=== PATIENT | male | born 1950 | race Caucasian/White ===

== ENCOUNTER 2017-10-19 13:39 | Day surgery (SDC) | payer OTHER, MEDICARE, SELFPAY ==
[2017-10-18 11:59] VITALS: BMI 33.5
[2017-10-19] VITALS (7 sets, daily range): BP systolic 142–166; BP diastolic 77–91; PULSE 60–80; RESP 14–17; TEMP 36.3–36.4; O2SAT 94–99; BMI 33.5
--- NOTE | 2017-10-19 14:42 | PM.PREOP ---
Pre-operative Note Interval Note Pre-op Check: History & Physical Reviewed by Physician, Exam Performed and History & Physical exam performed today
[2017-10-19] MEDS: LACTATED RINGERS 1,000 ML 42 ML IV (14:51)
[2017-10-19] MEDS: CEFAZOLIN 2 GM/100 ML FROZ.PIGGY IV (15:00)
--- NOTE | 2017-10-19 15:00 | DI.RAD.S_ITS ---
PROCEDURE: XR LUMBAR SPINE 2-3V INDICATIONS: L4-5 MICRODISCECTOMY TECHNIQUE: 2 views of the lumbar spine were acquired. COMPARISON: None. FINDINGS: Bones: AP and lateral images in OR show a metallic plate overlying the left L4-5 disc level. Soft tissues: Overlying bowel gas pattern is normal. No suspicious soft tissue calcifications. IMPRESSION: Intraoperative localization L4-5 disc level Dictated by: Ga Chang M.D. on 10/19/2017 at 16:12 Approved by: Ga Chang M.D. on 10/19/2017 at 16:13
--- NOTE | 2017-10-19 15:43 | SUR.OPER ---
Prone on spine table, head in foam head support, padded chest and pelvic supports, gel pad at knees, lower legs supported by pillows; nipples, genitalia and toes free of pressure, arms secured on foam padded arm boards at <90 degrees abduction. Tape over blanket at thigh secured to table.
[2017-10-19] MEDS: BUPIVACAINE 0.25% W/ EPI 50 ML VIAL 30 ML INJ (15:49)
[2017-10-19] MEDS: methylPREDNISolone acet DEPO 40 MG/ML VIAL INJ (15:50)
--- NOTE | 2017-10-19 16:15 | P.OP_ITS ---
Operative Date/Time/Diagnoses - Date of procedure: 10/19/17 Time of procedure: 15:12 Pre-op diagnosis: 1. Lumbar spinal stenosis L4-5 2. Lumbar disc herniation L4-5 Post-op diagnosis: same Procedure & Clinicians Procedure: 1. L4-5 left microdiscectomy 2. Utilization of microsurgical technique and operating microscope Same procedure as scheduled: Yes Indications: Patient has been having chronic back pain and worsening lumbar radiculopathy. Patient failed multiple conservative management with worsening pain weakness and numbness in her lower extremity. Patient has been having difficulty performing activity of daily living. After discussing risks benefits of treatment options, patient elected proceed with surgery. Surgeon: Peyton Adler Slat Basket Maker Machine: Arline Trevino Click Yes if Unassisted: No Anesthesia Type: General Operative Notes Closure Type: primary Specimen(s): none sent Estimated Blood Loss (mL): 5 Blood products transfused: none Procedure in detail: Patient was seen in the preoperative area. Risks and benefits of the surgery was discussed with the patient. Informed consent was obtained from the patient and placed in the chart. Surgical site was marked. Patient was taken to the operative room. General anesthesia was administered. Prophylactic antibiotic was given to the patient less than 30 min before the incision was made. Patient was placed into a prone position on the David table. Patient's back was then prepped and draped in the sterile fashion. Time- out was performed at this time. Using AP and lateral C-arm imaging the interval between L4-5 was identified and marked on patient's back. A 1 inch incision 1 in from midline was made on the left side. The fascia was incised in line with skin incision. Globus MARS retractors was placed inside the incision and docked onto the L4 lamina. Using microsurgical technique and operating microscope, a L4-5 laminotomy was performed using a Kerrison rongeur. Liagamentum flavum was resected at the site of the laminotomy. The disc space at L4-5 was identified. Microdiscectomy was performed by incising the annulus with #11 blade. Microcurettes and pituitary was used to removed herniated disc fragments of disc from the epidural space. After the microdiskectomy was completed, the area medial lateral superior and inferior to the area of the microdiskectomy was inspected and explored using a micro curette. No other impinging structure was identified. The wound was then irrigated with sterile normal saline. 40 mg Depo-Medrol was placed into the epidural space. The deep fascia was closed with 1-0 Vicryl. The subcutaneous tissue was closed with 2-0 Vicryl. The skin was closed with 4- 0 Monocryl. Patient tolerated the procedure well. There were no complications. Patient was transferred recovery room in stable condition. Complications: none Condition: stable Disposition: same day surgery Plan for aftercare: Discharge to home
== END 2017-10-19 17:10 | disposition home or self-care (01) ==
PROVIDERS: Visit Provider Orthopaedic Surgery Orthopaedic Surgery of the Spine
PROC: (CPT 63030; principal; 2017-10-19 15:15)
DX: M51.16 Intervertebral disc disorders with radiculopathy, lumbar region (principal); M47.26 Other spondylosis with radiculopathy, lumbar region; M48.061 Spinal stenosis, lumbar region without neurogenic claudication; I10 Essential (primary) hypertension; F17.210 Nicotine dependence, cigarettes, uncomplicated
CPT/HCPCS: 63030; 72100; 76001; J0690; J1030; J1100; J2250; J2405; J2704; J3010

== ENCOUNTER 2018-02-10 10:43 | Inpatient (IN) | payer OTHER, MEDICARE, SELFPAY ==
[2018-02-08 08:59] VITALS: BMI 35.2
[2018-02-10] VITALS (12 sets, daily range): BP systolic 111–159; BP diastolic 53–101; PULSE 65–84; RESP 9–22; TEMP 36.2–37.6; O2SAT 92–98; BMI 32.5
[2018-02-10] MEDS: LACTATED RINGERS 1,000 ML 42 ML IV ×2 (11:26→15:13)
--- NOTE | 2018-02-10 13:07 | PM.PREOP ---
Pre-operative Note Interval Note Pre-op Check: Yes History & Physical Reviewed by Physician, Yes Exam Performed and Yes History & Physical exam performed today by Physician Changes: No
[2018-02-10] MEDS: CEFAZOLIN 2 GM/100 ML FROZ.PIGGY IV ×2 (13:16→21:11)
[2018-02-10] MEDS: BUPIVACAINE LIPOSOME 266 MG/20 ML VIAL INJ (13:59)
[2018-02-10] MEDS: BUPIVACAINE 0.25% W/ EPI VIAL 50 ML INJ (13:59)
--- NOTE | 2018-02-10 14:00 | DI.RAD.S_ITS ---
PROCEDURE: XR LUMBAR SPINE 2-3V INDICATIONS: L4-5 TLIF TECHNIQUE: Fluoroscopic images were obtained during an operative procedure and submitted for interpretation following the completion of the procedure. COMPARISON: [facility], MR, MR LUMBAR SPINE WITHOUT CONTRAST, 08/29/2017, 8:05. [facility], CR, XR LUMBAR SPINE 2-3V, 10/19/2017, 15:40. FINDINGS: These fluoroscopic images were performed for intraoperative localization. On these images, pedicle screws are seen at the apparent L4-L5 level, with vertical fixation rods. The screws appear well placed. There is a disc spacer is seen at this level. Please correlate with intraoperative findings. IMPRESSION: Normal intraoperative examination. Dictated by: Misha Biggs M.D. on 02/10/2018 at 15:25 Approved by: Misha Biggs M.D. on 02/10/2018 at 15:26
--- NOTE | 2018-02-10 14:12 | SUR.OPER ---
UPPER DENTURES IN LABELED CONTAINER TO PACU WITH PATIENT.
[2018-02-10] MEDS: ACETAMINOPHEN IV 1,000 MG/100 ML VIAL 400 MG IV (15:00)
--- NOTE | 2018-02-10 15:18 | PM.OP.1 ---
Operative Date/Time/Diagnoses Date of procedure: 02/10/18 Time of procedure: 13:18 Pre-op diagnosis: 1. Hx of L4-5 microdiscectomy with recurrent disc herniation 2. L4-5 spinal stenosis. 3. L4-5 spondylosis with radiculopathy Post-op diagnosis: same Procedure & Clinicians Procedure: 1. L4-5 Postero-lateral and posterior interbody fusion 2. L4-5 interbody cage placement. 3. L4-5 decompressive laminectomy with bilateral facetecomies 4. L4-5 Posterior non-segmental instrumentation 5. [place] of bone marrow from iliac crest 6. Utilization of microsurgical technique and operating microscope Same procedure as scheduled: Yes Indications: Patient has been having chronic back pain and worsening lumbar radiculopathy. Patient failed multiple conservative management with worsening pain weakness and numbness in her lower extremity. Patient has been having difficulty performing activity of daily living. After discussing risks benefits of treatment options, patient elected proceed with surgery. Surgeon: Peyton Adler Weighmaster Lead: Kenyetta Ugalde'Brien Click Yes if Unassisted: No Anesthesia Type: General Operative Notes Closure Type: primary Specimen(s): none sent Implants & Drains: Globus revolve screws, Rise cage Estimated Blood Loss (mL): 100 Blood products transfused: none Procedure in detail: Patient was seen in the preoperative area. Risks and benefits of the surgery was discussed with the patient. Informed consent was obtained from the patient and placed in the chart. Surgical site was marked. Patient was taken to the operative room. General anesthesia was administered. Prophylactic antibiotic was given to the patient less than 30 min before the incision was made. Patient was placed into a prone position on the David table. Patient's back was then prepped and draped in the sterile fashion. Time-out was performed at this time. Using AP and lateral C-arm imaging the interval between L4-5 was identified and marked on patient's back. A 2 inch incision 2 in from midline was made on the right side first. The fascia was incised in line with skin incision. Globus MARS retractors was placed inside the incision and docked onto the L4 lamina. Using microsurgical technique and operating microscope, a L4 laminectomy and L4-5 facetectomy was performed using a Kerrison rongeur. The disc space at L4-5 was identified. And a total diskectomy was performed at L4-5 level. The endplates were decorticated using a rasp and shaver. The total diskectomy and decortication was performed at L4-5 level in order to to accomplish a L4-5 fusion. The local bone from the laminectomy and facetectomy was saved for local bone grafting. After the total diskectomy and decortication was completed, Globus viacell bone graft material was combined with local bone that was harvested earlier. At this time, a separate skin is incision was made over the iliac crest. A Jamshidi needle was inserted into the iliac crest through a separate skin incision. 5 cc of bone marrow aspiration was obtained through the separate skin incision using a Jamshidi needle from the iliac crest. The bone marrow aspiration was combined with local bone and the via cell bone grafting material. The bone grafting material was placed into the L4-5 interbody space along with a expandable cage. The cage was expanded to its maximum height using the torque limiting screwdriver. At this time a mirror image incision was made on the left side. The fascia was incised in line with the skin incision. Globus MARS retractor was inserted and docked onto the L4-5 posterolateral gutter. Using the power drill, posterior-lateral decortication was performed at L4-5 level until bleeding cortical bone was identified. The remaining bone grafting material was placed into the L4-5 posterior lateral gutter he order to accomplish posterolateral fusion at the L4-5 level. Using the double C-arm technique, pedicle screws were placed into the L4-5 pedicles bilaterally. This was done by placing the Jamshidi needle into the pedicles, then placing the guidewires over the Jamshidi needle, and finally placing the cannulated screws over the guidewires bilaterally. After the pedicle screws were placed, 2 titanium rods was locked into the heads of the pedicle screws using locking caps and torque limiting screwdriver. After all the hardware was placed, and confirmed with AP and lateral C-arm imaging, the wound was then irrigated with sterile normal saline and packed with Ray-Kailee gauze for 3 min to accomplish hemostasis. After the gauze was removed the deep fascia was closed with #1 Vicryl suture. The subcutaneous layer was closed with 2-0 Vicryl. The skin was closed with skin suma. Patient tolerated the procedure well. There were no complications. Complications: none Condition: stable Disposition: Acute Care Plan for aftercare: Admit to inpatient hospital
--- NOTE | 2018-02-10 15:22 | P.OP_ITS ---
Operative Date/Time/Diagnoses Date of procedure: 02/10/18 Time of procedure: 13:18 Pre-op diagnosis: 1. Hx of L4-5 microdiscectomy with recurrent disc herniation 2. L4-5 spinal stenosis. 3. L4-5 spondylosis with radiculopathy Post-op diagnosis: same Procedure & Clinicians Procedure: 1. L4-5 Postero-lateral and posterior interbody fusion 2. L4-5 interbody cage placement. 3. L4-5 decompressive laminectomy with bilateral facetecomies 4. L4-5 Posterior non-segmental instrumentation 5. [place] of bone marrow from iliac crest 6. Utilization of microsurgical technique and operating microscope Same procedure as scheduled: Yes Indications: Patient has been having chronic back pain and worsening lumbar radiculopathy. Patient failed multiple conservative management with worsening pain weakness and numbness in her lower extremity. Patient has been having difficulty performing activity of daily living. After discussing risks benefits of treatment options, patient elected proceed with surgery. Surgeon: Peyton Adler Filter Tip Catcher: Kenyetta Ugalde'Brien Click Yes if Unassisted: No Anesthesia Type: General Operative Notes Closure Type: primary Specimen(s): none sent Implants & Drains: Globus revolve screws, Rise cage Estimated Blood Loss (mL): 100 Blood products transfused: none Procedure in detail: Patient was seen in the preoperative area. Risks and benefits of the surgery was discussed with the patient. Informed consent was obtained from the patient and placed in the chart. Surgical site was marked. Patient was taken to the operative room. General anesthesia was administered. Prophylactic antibiotic was given to the patient less than 30 min before the incision was made. Patient was placed into a prone position on the David table. Patient's back was then prepped and draped in the sterile fashion. Time- out was performed at this time. Using AP and lateral C-arm imaging the interval between L4-5 was identified and marked on patient's back. A 2 inch incision 2 in from midline was made on the right side first. The fascia was incised in line with skin incision. Globus MARS retractors was placed inside the incision and docked onto the L4 lamina. Using microsurgical technique and operating microscope, a L4 laminectomy and L4- 5 facetectomy was performed using a Kerrison rongeur. The disc space at L4-5 was identified. And a total diskectomy was performed at L4-5 level. The endplates were decorticated using a rasp and shaver. The total diskectomy and decortication was performed at L4-5 level in order to to accomplish a L4-5 fusion. The local bone from the laminectomy and facetectomy was saved for local bone grafting. After the total diskectomy and decortication was completed , Globus viacell bone graft material was combined with local bone that was harvested earlier. At this time, a separate skin is incision was made over the iliac crest. A Jamshidi needle was inserted into the iliac crest through a separate skin incision. 5 cc of bone marrow aspiration was obtained through the separate skin incision using a Jamshidi needle from the iliac crest. The bone marrow aspiration was combined with local bone and the via cell bone grafting material. The bone grafting material was placed into the L4-5 interbody space along with a expandable cage. The cage was expanded to its maximum height using the torque limiting screwdriver. At this time a mirror image incision was made on the left side. The fascia was incised in line with the skin incision. Globus MARS retractor was inserted and docked onto the L4-5 posterolateral gutter. Using the power drill, posterior- lateral decortication was performed at L4-5 level until bleeding cortical bone was identified. The remaining bone grafting material was placed into the L4-5 posterior lateral gutter he order to accomplish posterolateral fusion at the L4- 5 level. Using the double C-arm technique, pedicle screws were placed into the L4-5 pedicles bilaterally. This was done by placing the Jamshidi needle into the pedicles, then placing the guidewires over the Jamshidi needle, and finally placing the cannulated screws over the guidewires bilaterally. After the pedicle screws were placed, 2 titanium rods was locked into the heads of the pedicle screws using locking caps and torque limiting screwdriver. After all the hardware was placed, and confirmed with AP and lateral C-arm imaging, the wound was then irrigated with sterile normal saline and packed with Ray-Kailee gauze for 3 min to accomplish hemostasis. After the gauze was removed the deep fascia was closed with #1 Vicryl suture. The subcutaneous layer was closed with 2-0 Vicryl. The skin was closed with skin suma. Patient tolerated the procedure well. There were no complications. Complications: none Condition: stable Disposition: Acute Care Plan for aftercare: Admit to inpatient hospital
[2018-02-10] MEDS: OXYCODONE IR 5 MG TABLET 10 MG PO ×2 (17:47→21:10)
[2018-02-10] MEDS: SODIUM CHLORIDE 0.9% 1,000 ML 100 ML IV (17:49)
[2018-02-10] MEDS: GABAPENTIN 600 MG TABLET PO (21:11)
[2018-02-10] MEDS: SENNOSIDES 8.6 MG TABLET 17.2 MG PO (21:11)
[2018-02-10] MEDS: DOCUSATE 100 MG CAPSULE PO (21:11)
[2018-02-11] MEDS: OXYCODONE IR 5 MG TABLET 10 MG PO ×2 (00:15→04:59)
[2018-02-11] MEDS: MAG HYDROX/ALUM/SIMETH 30 ML UDC PO (00:20)
[2018-02-11 00:59] VITALS: TEMP 37
--- NOTE | 2018-02-11 00:59 | PC.NURSE ---
02 2L NC applied due to decreased in Sats to 88 % when asleep.
[2018-02-11] MEDS: SODIUM CHLORIDE 0.9% 1,000 ML 100 ML IV (03:23)
[2018-02-11] MEDS: CEFAZOLIN 2 GM/100 ML FROZ.PIGGY IV (04:55)
[2018-02-11] MEDS: ONDANSETRON 4 MG/2 ML INJ IV (05:37)
[2018-02-11 05:44] VITALS: BP 129/76; PULSE 66; RESP 16; TEMP 36.7; O2SAT 97
[2018-02-11 06:27] LABS: Hematocrit 43.3 % (41-53); Hemoglobin 14.9 g/dL (13.5-17.5)
[2018-02-11 08:00] VITALS: BP 130/77; PULSE 89; RESP 16; TEMP 36.8; O2SAT 99
[2018-02-11] MEDS: LISINOPRIL 20 MG TABLET PO (09:19)
[2018-02-11] MEDS: GABAPENTIN 600 MG TABLET PO (09:19)
[2018-02-11] MEDS: MULTIVITAMIN 1 TABLET 1 TAB PO (09:19)
[2018-02-11] MEDS: DOCUSATE 100 MG CAPSULE PO (09:19)
[2018-02-11] MEDS: ACETAMINOPHEN 325 MG TABLET 650 MG PO (09:26)
--- NOTE | 2018-02-11 10:01 | PT.IIE ---
Current Diagnoses Other spondylosis with radiculopathy, lumbar region (02/10/18) Spinal stenosis, lumbar region without neurogenic claudication (02/10/18) Postlaminectomy syndrome, not elsewhere classified (02/10/18) Surgery Performed Operation Date: 02/10/18 12:45 Actual Procedures p L4-5 TLIF - Peyton Adler MD Surgical History (Last Updated 02/08/18 @ 09:17 by Marzena Witt, RN) H/O vasectomy (Acute) History of arthroplasty of right knee (Acute) Hx of appendectomy (Acute) Hx of hernia repair (Acute) Hx of microdiscectomy (Acute) Status post extracapsular cataract extraction of right eye (Acute) Medical History (Last Updated 02/08/18 @ 09:17 by Marzena Witt RN) Arthritis (Acute) DDD (degenerative disc disease) (Acute) Fracture of lower limb (Acute) Hypertension (Acute) Lumbar disc herniation with radiculopathy (Acute) Osteoarthritis of spine with radiculopathy, lumbar region (Acute) Other spondylosis with radiculopathy, lumbar region (Acute) Peripheral neuropathy (Acute) Right leg injury (Acute) Spinal stenosis, lumbar region without neurogenic claudication (Acute) Physical Therapy Inpatient Evaluation/Re-Eval M1 PT/OT-IP Prior Functional Status Start: 02/11/18 12:16 Freq: NEEDED Status: Active Protocol: Document 02/11/18 10:01 AB (Rec: 02/11/18 12:34 AB [id number]) Medical Review Prior Functional Status Medical History Reviewed Yes Communication able to make needs known Mobility and Gait stated that he is independent with all mobilities and ambulation without AD Social History Household Members spouse children Living Arrangements House Number of Floors (Floors) Two Floors Number of Stairs To Enter/Railing? 3 steps to enter without rails has 16 steps with R rail ascending to get to bedroom level. 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 PT-IP Current Condition Start: 02/11/18 12:16 Freq: NEEDED Status: Active Protocol: Document 02/11/18 10:01 AB (Rec: 02/11/18 12:34 AB [id number]) Physical Therapy Current Condition Current Condition Evaluation Date 02/11/18 Treatment Diagnosis s/p L4-5 fusion and laminectomy; difficulty in walking Onset Date 02/10/18 Precautions Lumbar Precautions Log Roll No Twisting Limit Bending Lifting Restriction of 10 lbs Gait Belt above Incisional Area M3 PT-IP Subjective Start: 02/11/18 12:16 Freq: NEEDED Status: Active Protocol: Document 02/11/18 10:01 AB (Rec: 02/11/18 12:34 AB [id number]) Subjective Physical Therapy Visit Type Type Initial Evaluation Visit Start Time 10:01 Visit Stop Time 10:24 Total Visit Minutes 23 Number of INTERMODAL DISPATCHER Visits 0 Physical Therapy Visit Comments Patient Comments pt stated that he did not sleep well last night Therapy Pain Assessment Pain When Pain Assessed At Rest Pain Present Pain Present Pain Reported Location Back Intensity 2 Scale Used Numeric (1 - 10) Pain Behaviors Restlessness Pain Management Techniques Apply Cold Timing of Activity with Medications M4 PT-IP Mobility and Gait Start: 02/11/18 12:16 Freq: NEEDED Status: Active Protocol: Document 02/11/18 10:01 AB (Rec: 02/11/18 12:34 [id number]) PT-Bed Mobility Assessment Rolling Type of Rolling Log Rolling Level of Assist Standby Assistance 1 Person Assistance Supine to Sit Supine to Sit Standby Assistance Bedrails Sit to Supine Sit to Supine Moderate Assistance Bedrails PT-Transfer Assessment Sit to and From Stand Sit to and from Stand Minimal Assistance Equipment Transfer Assistive Device Gait Belt Front Wheeled Walker Transfers Transfer Destination Toilet Transfer Technique pt ambulated to the toilet using FWW Transfer Ability Level of Assist Minimal Assistance 1 Person Assistance Use of Upper Extremities Gait Assessment Gait Gait Assistance Required: Contact Guard Assist Distance (Feet) 125 Able to Maintain Weight Bearing Status Yes During Gait Assistive Devices Assistive Device Gait Belt Front Wheeled Walker Orthotic/Prosthetic Devices or Brace: No Gait Deviations General Gait Pattern Decreased Stride Length Decreased Feet Clearance Factors Limiting Gait Function Factors Limiting Gait Function Decreased Activity Tolerance Decreased Strength Limited Range of Motion Pain Poor Balance Poor Safety Awareness Comments Gait Comments pt can be impulsive PT-Balance Assessment Sitting Balance and Reactions Static Sitting Balance Ability Good Dynamic Sitting Balance Ability Good Standing Balance and Reactions Static Standing Balance Ability Fair Dynamic Standing Balance Ability Fair Device Used FWW M5 PT-IP Objective Assessments Start: 02/11/18 12:16 Freq: NEEDED Status: Active Protocol: Document 02/11/18 10:01 AB (Rec: 02/11/18 12:34 AB [id number]) Orientation Orientation/Cognition Level of Alertness Alert Orientation Name Age Birthday Month Date Year Day of Week Place Situation Safety Awareness Decreased Safety Awareness Gross Range of Motion Lower Extremity ROM Assessment Within Functional Limits Strength Lower Extremity Strength Assessment Within Functional Limits Muscle Tone Muscle Tone WNL Yes M6 PT-IP Treatment Start: 02/11/18 12:16 Freq: NEEDED Status: Active Protocol: Document 02/11/18 10:01 AB (Rec: 02/11/18 12:34 AB [id number]) Physical Therapy Treatment Education Education Provided Precautions Weight Bearing Status Post-Op Packet Safety M7 PT-IP Assessment and Plan Start: 02/11/18 12:16 Freq: NEEDED Status: Active Protocol: Document 02/11/18 10:01 AB (Rec: 02/11/18 12:34 AB [id number]) PT Summary Assessment and Plan Potential Rehabilitation Potential Good Status of Condition at Evaluation Evolving Summary Impairments Pain ROM Strength Balance Coordination Sensation Tone Cognition Bed Mobility Transfers Gait Activity Tolerance Assessment Summary pt requiring one person assist with mobility. pt plans to go home with spouse to assist him. caregiver training will be conducted when appropriate. initiated caregiver training with bed mobility and spouse was able to assist pt with sit to supine in bed. Goals Bed Mobility Goal Standby Assistance Transfer Goal Standby Assistance Gait Goal Standby Assistance Gait Distance 150 Other Goals up/down 3 steps without rails 16 steps with R rail ascending Days to Meet Goals 3 Frequency of Treatment Frequency Of Treatment Twice a Day Treatment Plan Physical Therapy Treatment Plan Bed Mobility Training Transfer Training Gait Training Therapeutic Exercise Balance Retraining Post Op Education Discharge Planning Hot or Cold Pack Neuromuscular Re-ed Coordination Retraining Manual Therapy Recommendations To Nursing Amount of Assist Needed 1 Person Assist Discharge Recommendations PT Discharge Recommendations Home with Assistance
[2018-02-11 10:56] VITALS: O2SAT 93
--- NOTE | 2018-02-11 11:15 | PM.DS.1 ---
History of Present Illness Chief complaint: L4-L5 TLIF Discharge Providers Date of admission: 02/10/18 10:43 Consults: 02/10/18 16:27 Consult to Occupational Therapy Evaluate & Treat Comment: Physician Instructions: Evaluate and treat Consult to Physical Therapy Evaluate & Treat Comment: Physician Instructions: Evaluate and Treat 02/10/18 17:37 Consult to Dietitian, Adult Routine Comment: Reason For Exam: unexplained and unintentional weight loss Discharge provider: Kenyetta Luna PA-C Summary Discharge Diagnosis: Status post lumbar fusion Hypertension Hospital Course: Alex was admitted for L4-[address] Adler, and he consented to procedure. Hospital course was unremarkable. On postop day 1. He is feeling well and ready to go home. He was eating and voiding without any difficulty or assistance. Dressing on back was changed to coversite dressing before discharge. He has been up with physical therapy and ambulating in the brown. His pain was well controlled with Tylenol, Vistaril, and [place] 5/325. Status at Discharge Functional status at discharge: uses cane/walker Exam Vital Signs (past 8 hours): - 02/11/18 05:44 02/11/18 08:00 02/11/18 10:56 Temperature 98.1 F 98.2 F Pulse Rate 66 89 Respiratory Rate 16 16 Blood Pressure 129/76 130/77 Pulse Oximetry 97 99 93 Fraction of Inspired Oxygen 21 Oxygen Delivery Method Room Air Oxygen Flow Rate 0 Narrative Exam Narrative: Patient is sitting up in bed in no acute distress. He is alert and oriented x3. Calves are soft, compressible, nontender bilaterally. Dressing on back is CDI. Will be changed to cover site dressing prior to discharge. Sensation intact light touch throughout bilateral lower extremities. He does some nausea and vomiting with oxycodone. Requesting a lesser strength medication. Agrees that [place] will work well for him. Urinating without a catheter. Denies any chest pain or shortness of breath. Objective Labs Result Diagrams: 02/11/18 06:18 Labs: Laboratory Results - last 24 hr 02/11/18 06:18 Hgb 14.9 Hct 43.3 Discharge Plan Discharge Plan Patient Disposition: Home Discharge comment: DC home today with cover site dressing Discharge Med Rec/Prescriptions Prescriptions: New acetaminophen 325 mg Tablet 325 mg PO Q6HR PRN (Reason: Pain, Mild (1-3)) Qty: 60 RF: 0 hydrocodone-acetaminophen 5-325 mg Tablet 1 tab PO Q4-6H PRN (Reason: Pain, Moderate (4-6)) Qty: 40 RF: 0 hydroxyzine pamoate 25 mg Capsule 25 mg PO Q6HR Qty: 60 RF: 0 ondansetron HCl [Zofran] 4 mg tablet 4 mg PO BID-TID PRN (Reason: nausea and vomiting) Qty: 10 RF: 0 Continue aspirin [Aspirin Low Dose] 81 mg Tablet,Delayed Release (Dr/Ec) 81 mg PO DAILY RF: 0 lisinopril 5 mg Tablet 20 mg PO QAM RF: 0 gabapentin 300 mg Capsule 600 mg PO TID RF: 0 varenicline [Chantix] 1 mg Tablet 1 mg PO BID RF: 0 multivitamin 1 tab PO DAILY RF: 0 vitamin E 1,000 mg PO DAILY RF: 0 Discontinued naproxen sodium [Aleve] 220 mg Capsule 1 - 2 tab PO BID PRN (Reason: pain) RF: 0 Follow up/Referrals: Peyton Adler MD [Physician] - (Follow up in 10-14 days with [facility]) Provider Discharge Instructions Diet: Diet as Tolerated Activity: No excessive bending, lifting, or twisting Cold/Heat Therapy: Ice as needed Skin/Wound/Dressing Care Report to your healthcare provider any signs of infection, such as:: chills, fever and increased pain Dressing: Please leave cover site dressing in place Visit Report/Discharge Packet Instructions: DI for Transforaminal Lumbar Interbody Fusion Stand Alone Forms: Surgery Discharge Visit Report Forms: Stroke Signs & Symptoms Discharge Data Attending Provider: Peyton Adler Admit Date/Time: 02/10/18 10:43 Quality VTE Deep Vein Thrombosis/Pulmonary Embolism Present on Admission: No
--- NOTE | 2018-02-11 11:45 | CM.DANOTE ---
Addendum entered by JAYASHREE Brown 02/11/18 14:21: ADD: Pt completed work with PT/OT and discharged home per pt request today. No SW needs at this time. BF Original Note: Addendum entered by JAYASHREE Brown 02/11/18 12:21: ADD: SW spoke to PT/OT who state pt can be somewhat impulsive but seems to be ambulating well but still needs to do stair training with spouse since pt has 3 steps with no rail to enter house and then 16 steps up to the bedroom. SW to follow closely for stair training and further PT today to determine if still safe for d/c home. BF Original Note: DCP Chart Review/Discharge Home Patient is a 68 year old male who was admitted on 02/10/18 for TLIF. Pt has [facility] and [facility] for insurance and his PCP is Dr. Amanda. EMR was reviewed. Per Ortho PA, pt tolerated procedure well and has been up ambulating halls with PT and urinating independently and stable for d/c home today with no identified barriers to discharge. Per RN, pt independent and no concerns at this time. SW attempted bedside assessment and pt was working with PT on stair training and will attempt assessment again to confirm d/c plan of home. Plan: Patient to d/c home today via spouse POV and no SW needs at this time. SW to attempt another bedside assessment prior to leaving the hospital if triage needs allow. JAYASHREE Brown
--- NOTE | 2018-02-11 12:35 | PT.IPTN ---
Current Diagnoses Other spondylosis with radiculopathy, lumbar region (02/10/18) Spinal stenosis, lumbar region without neurogenic claudication (02/10/18) Postlaminectomy syndrome, not elsewhere classified (02/10/18) Surgery Performed Operation Date: 02/10/18 12:45 Actual Procedures p L4-5 TLIF - Peyton Adler MD Physical Therapy Treatment Note M2 PT-IP Current Condition Start: 02/11/18 12:16 Freq: NEEDED Status: Active Protocol: Document 02/11/18 10:01 AB (Rec: 02/11/18 12:34 AB [id number]) Physical Therapy Current Condition Current Condition Evaluation Date 02/11/18 Treatment Diagnosis s/p L4-5 fusion and laminectomy; difficulty in walking Onset Date 02/10/18 Precautions Lumbar Precautions Log Roll No Twisting Limit Bending Lifting Restriction of 10 lbs Gait Belt above Incisional Area M3 PT-IP Subjective Start: 02/11/18 12:16 Freq: NEEDED Status: Active Protocol: Document 02/11/18 12:35 AB (Rec: 02/11/18 13:11 AB [id number]) Subjective Physical Therapy Visit Type Type Treatment Note Visit Start Time 12:35 Visit Stop Time 12:55 Total Visit Minutes 20 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 0 Physical Therapy Visit Comments Patient Comments pt plans to go home when Therapy Pain Assessment Pain When Pain Assessed At Rest Pain Present Pain Present Pain Reported Location Back Intensity 2 Scale Used Numeric (1 - 10) M4 PT-IP Mobility and Gait Start: 02/11/18 12:16 Freq: NEEDED Status: Active Protocol: Document 02/11/18 12:35 AB (Rec: 02/11/18 13:11 AB [id number]) PT-Transfer Assessment Sit to and From Stand Sit to and from Stand Standby Assistance Equipment Transfer Assistive Device Gait Belt Front Wheeled Walker Orthotic/Prosthetic Devices or Brace: Yes Gait Assessment Gait Gait Assistance Required: Standby Assistance Distance (Feet) 250 Able to Maintain Weight Bearing Status Yes During Gait Assistive Devices Assistive Device Gait Belt Front Wheeled Walker Orthotic/Prosthetic Devices or Brace: Yes Gait Deviations General Gait Pattern Antalgic Flexed Trunk Factors Limiting Gait Function Factors Limiting Gait Function Decreased Activity Tolerance Decreased Strength Limited Range of Motion Pain Poor Balance Poor Safety Awareness Stair Climbing Assessment Evaluation Level of Assist On Stairs Contact Guard Assistance Minimal Assistance Devices Stair Climbing Assistive Devices Right Railing Technique/Endurance Stair Climbing Direction Ascend and Descend Stair Climbing Technique Step to Step Number of Steps Climbed 3 Query Text: Stair Climbing Set # Repetitions (reps) 3 Comments Stair Climbing Comments assessed stair climbing: pt completed up/down steps using bilateral rails and completed with CGA. completed using R rail ascending and required CGA to occasional min A. completed stairs again with spouse assisting and spouse was able to safely assist pt. M5 PT-IP Objective Assessments Start: 02/11/18 12:16 Freq: NEEDED Status: Active Protocol: Document 02/11/18 10:01 AB (Rec: 02/11/18 12:34 AB [id number]) Orientation Orientation/Cognition Level of Alertness Alert Orientation Name Age Birthday Month Date Year Day of Week Place Situation Safety Awareness Decreased Safety Awareness Gross Range of Motion Lower Extremity ROM Assessment Within Functional Limits Strength Lower Extremity Strength Assessment Within Functional Limits Muscle Tone Muscle Tone WNL Yes M6 PT-IP Treatment Start: 02/11/18 12:16 Freq: NEEDED Status: Active Protocol: Document 02/11/18 12:35 AB (Rec: 02/11/18 13:11 AB [id number]) Physical Therapy Treatment Education Education Provided Precautions Weight Bearing Status Post-Op Packet Safety M7 PT-IP Assessment and Plan Start: 02/11/18 12:16 Freq: NEEDED Status: Active Protocol: Document 02/11/18 12:35 AB (Rec: 02/11/18 13:11 AB [id number]) PT Summary Assessment and Plan Potential Rehabilitation Potential Good Summary Impairments Pain ROM Strength Balance Coordination Sensation Tone Cognition Bed Mobility Transfers Gait Activity Tolerance Progress Towards Goals Progressing Toward Goals Assessment Summary pt requiring one person assist with mobility. caregiver training conducted and spouse was able to assist pt with ambulation and stair climbing. bed mobility caregiver training was conducted during OT session. pt palns to go home today with spouse assisting him at home. Goals Bed Mobility Goal Standby Assistance Transfer Goal Standby Assistance Gait Goal Standby Assistance Gait Distance 150 Other Goals up/down 3 steps without rails 16 steps with R rail ascending Days to Meet Goals 3 Frequency of Treatment Frequency Of Treatment Twice a Day Treatment Plan Physical Therapy Treatment Plan Bed Mobility Training Transfer Training Gait Training Therapeutic Exercise Balance Retraining Post Op Education Discharge Planning Hot or Cold Pack Neuromuscular Re-ed Coordination Retraining Manual Therapy Recommendations To Nursing Amount of Assist Needed 1 Person Assist Discharge Recommendations PT Discharge Recommendations Home with Assistance
--- NOTE | 2018-02-11 13:22 | OT.IP.EVAL ---
Current Diagnoses Other spondylosis with radiculopathy, lumbar region (02/10/18) Spinal stenosis, lumbar region without neurogenic claudication (02/10/18) Postlaminectomy syndrome, not elsewhere classified (02/10/18) Surgery Performed Operation Date: 02/10/18 12:45 Actual Procedures p L4-5 TLIF - Peyton Adler MD Past Medical History (Last Updated 02/08/18 @ 09:17 by Marzena Witt, RN) Arthritis (Acute) DDD (degenerative disc disease) (Acute) Fracture of lower limb (Acute) Hypertension (Acute) Lumbar disc herniation with radiculopathy (Acute) Osteoarthritis of spine with radiculopathy, lumbar region (Acute) Other spondylosis with radiculopathy, lumbar region (Acute) Peripheral neuropathy (Acute) Right leg injury (Acute) Spinal stenosis, lumbar region without neurogenic claudication (Acute) Surgical History (Last Updated 02/08/18 @ 09:17 by Marzena Witt RN) H/O vasectomy (Acute) History of arthroplasty of right knee (Acute) Hx of appendectomy (Acute) Hx of hernia repair (Acute) Hx of microdiscectomy (Acute) Status post extracapsular cataract extraction of right eye (Acute) Occupational Therapy Inpatient Evaluation/Re-Eval M1 PT/OT-IP Prior Functional Status Start: 02/11/18 12:16 Freq: NEEDED Status: Active Protocol: Document 02/11/18 10:01 AB (Rec: 02/11/18 12:34 AB [id number]) Medical Review Prior Functional Status Medical History Reviewed Yes Communication able to make needs known Mobility and Gait stated that he is independent with all mobilities and ambulation without AD Social History Household Members spouse children Living Arrangements House Number of Floors (Floors) Two Floors Number of Stairs To Enter/Railing? 3 steps to enter without rails has 16 steps with R rail ascending to get to bedroom level. 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 3 steps to enter without rails has 16 steps with R rail ascending to get to bedroom level. 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 OT-IP Current Condition Start: 02/11/18 13:07 Freq: Status: Active Protocol: Document 02/11/18 13:08 [facility] (Rec: 02/11/18 13:21 [facility] [id number]) Occupational Therapy Current Condition Current Condition Evaluation Date 02/11/18 Treatment Diagnosis Spinal Stenosis Diagnosis Onset Date 02/10/18 Post Operative Precautions Lumbar Precautions Log Roll No Twisting Limit Bending Lifting Restriction of 10 lbs Gait Belt above Incisional Area M3 OT- IP Subjective and Pain Start: 02/11/18 13:07 Freq: Status: Active Protocol: Document 02/11/18 13:08 [facility] (Rec: 02/11/18 13:21 [facility] [id number]) OT- Subjective Occupational Therapy Visit Type Type Initial Evaluation Visit Start Time 11:45 Visit Stop Time 11:55 Total Visit Minutes 10 Occupational Therapy Visit Comments Patient/Caregiver Goals Pt insistent on going home today. M4 OT- IP ADL's Start: 02/11/18 13:07 Freq: Status: Active Protocol: Document 02/11/18 13:08 [facility] (Rec: 02/11/18 13:21 [facility] [id number]) OT ADL-Dressing General Eval Upper Body Dressing Ability Standby Assistance Lower Body Dressing Ability Moderate Assistance Areas Needing Assistance Pants/Shorts Socks Shoes Comments OT Dressing Comments Educated pt to sit down first to job clothing items versus standing. OT ADL-Toileting General Evaluation Toileting Ability Standby Assistance M6 OT- IP Functional Cognition Start: 02/11/18 13:07 Freq: Status: Active Protocol: Document 02/11/18 13:08 [facility] (Rec: 02/11/18 13:21 [facility] [id number]) Cognitive Factors Limiting Selfcare Function Cognitive Ability Level of Alertness Alert Patient Orientation Name Place Situation Attention Span Ability Capable of Focused Attention Capable of Sustained Attention Ability to Follow Commands Able to Follow Multi-Step Commands Memory Description No Deficits Noted Safety Awareness Underestimates Need for Assistance Cognitive Comments Cognitive Assessment Comments Pt is impulsive and needs cue to slow down and thinks things through. OT- Vision and Hearing OT- Hearing Assessment OT- Hearing Assessment WFL M7 OT- IP Mobility and Balance Start: 02/11/18 13:07 Freq: Status: Active Protocol: Document 02/11/18 13:08 [facility] (Rec: 02/11/18 13:21 [facility] [id number]) OT- Bed Mobility Assessment Rolling Type of Rolling Roll to Left Level of Assistance Minimal Assistance Moderate Assistance Supine to Sit Supine to Sit Assist Moderate Assistance Sit to Supine Sit to Supine Assist Moderate Assistance OT-Transfer Assessment Sit to and From Stand Sit to and from Stand Minimal Assistance Moderate Assistance Transfers Transfer Ability Contact Guard Assistance Minimal Assistance Technique Transfer Destination Bed Chair Toilet Devices Transfer Assistive Devices Gait Belt Front Wheeled Walker Comments Mobility Comments Pt 's able to demonstrate good understanding to assist pt for all bed mobility needs. Suggested for to hold FWW next to the bed so pt able to use as bed rail. Pt's also trying to consider pt to sleep downstairs on the recliner initially. VC to tp to push up from the surface sitting on versus grab his 's arm to stand. M8 OT- IP Objective Assessments Start: 02/11/18 13:07 Freq: Status: Active Protocol: Document 02/11/18 13:08 [facility] (Rec: 02/11/18 13:21 [facility] [id number]) OT Gross Range of Motion Upper Extremity Range of Motion Assessment Within Functional Limits M9 OT- IP Assessment and Plan Start: 02/11/18 13:07 Freq: Status: Active Protocol: Document 02/11/18 13:08 [facility] (Rec: 02/11/18 13:21 [facility] [id number]) OT Summary Assessment and Plan Potential Rehabilitation Potential Good Analytic Complexity at Evaluation Low Summary OT Impairments Functional Cognition Functional Mobility Dressing Toileting Bathing Toilet Transfers Shower Transfers Progress Towards Goals Progressing Toward Goals Assessment Summary Pt Low complexity and going home today, pt needing cue to slow down and for safety awareness. Pt's to assist pt for all needs. Goals Patient/Caregiver Education Goal Demonstrate Energy Conservation and Pacing Caregiver Independent Assisting Patient Days to Meet Goals 1 Frequency of Treatment Frequency Of Treatment Once a Day Treatment Plan OT Treatment Plan Patient/Family Education Discharge Planning Discharge Recommendations OT Discharge Recommendations Home with Assistance
== END 2018-02-11 13:04 | disposition home or self-care (01) | DRG 455 ==
PROVIDERS: Admitting Provider Orthopaedic Surgery Orthopaedic Surgery of the Spine; Visit Provider Orthopaedic Surgery Orthopaedic Surgery of the Spine
PROC: 0SG00AJ Fusion of Lumbar Vertebral Joint with Interbody Fusion Device, Posterior Approach, Anterior Column, Open Approach (ICD-10-PCS; principal; 2018-02-10 12:45)
DX: M48.061 Spinal stenosis, lumbar region without neurogenic claudication (principal); M47.26 Other spondylosis with radiculopathy, lumbar region; I10 Essential (primary) hypertension; F17.210 Nicotine dependence, cigarettes, uncomplicated; M51.26 Other intervertebral disc displacement, lumbar region; Z98.890 Other specified postprocedural states
CPT/HCPCS: 36415; 72100; 76001; 85014; 85018; 94760; 94762; 97116; 97162; 97165; C1776; C9290; J0131; J0330; J0690; J1100; J1170; J2250; J2405; J2704; J3010